=== PATIENT | female | born 1945 | race Caucasian/White ===

== ENCOUNTER → 2018-06-27 | Outpatient (CLI) | payer MEDICARE ==
[~2018-06-27] MED LIST: ALBU90OI INH; ASPI325 PO; BENZ100A PO; CALCAVITDA PO; CARV3.125 PO; CLON1 PO; EZET10-40 PO; Fluoxetine HCl20 M1 PO; GABA300 PO; GLIM2 PO; HYDACE5 PO; HYDACE5325 PO; HYDR1TAB94 PO; LEVE500 PO; LISI5 PO; METF850 PO; Medi-Meclizine25 MG PO; Mucinex600 MG PO; OMEP20ER PO; ONDA4 PO; PRAV20 PO; Prozac20 MG; SENN187 PO; TAMS.4ER PO; ZOLP10 PO; ZOLP5 PO
[2018-06-27 11:59] LABS: Creatinine, Urine Random 81.3 mg/dL (27.00-270.00); Protein, Urine Random 11.6 mg/dL (0.0-11.9)
== END | disposition home or self-care (01) ==
LOC: LAB SHORT 10:44 → LAB 10:44 → LAB FUT 08-31 18:10
PROVIDERS: Internal Medicine
DX: N18.2 Chronic kidney disease, stage 2 (mild) (principal)
CPT/HCPCS: 82570; 84156

== ENCOUNTER → 2018-12-28 | Outpatient (CLI) | payer MEDICARE | END | disposition home or self-care (01) | LOC: LAB SRC 13:10 → LAB SHORT 13:10 | DX: E11.9 Type 2 diabetes mellitus without complications (principal); E20.9 Hypoparathyroidism, unspecified; E78.5 Hyperlipidemia, unspecified; I10 Essential (primary) hypertension; D64.9 Anemia, unspecified | CPT/HCPCS: 82043 ==

== ENCOUNTER → 2020-05-14 | Outpatient (CLI) | payer MEDICARE ==
[2020-05-14 18:04] LABS: Appearance, Urine Clear (Clear); Bilirubin, Urine Neg (Neg); Blood, Urine Neg (Neg); Color, Urine Yellow (P-Yellow); Glucose Qualitative, Urine 4+ (Neg); Ketones, Urine Neg (Neg); Leukocyte Esterase, Urine 3+ (Neg); Nitrite, Urine Neg (Neg); Protein, Urine Neg (Neg); Urobilinogen, Urine NORM (Normal)
[2020-05-14 18:48] LABS: Bacteria Mod /hpf; Red Blood Cells, Urine 0-2 /hpf (0-2); Squamous Epithelial Cells Few /hpf (Few); Transitional Epithelial Cells Few /hpf (0-Rare)
== END | disposition home or self-care (01) ==
LOC: LAB SHORT 12:40 → LAB SRC 12:40 → LAB FUT 05-13 15:05
PROVIDERS: Physician Assistant
DX: R55 Syncope and collapse (principal)
CPT/HCPCS: 81001; 87086

== ENCOUNTER → 2021-05-06 | Outpatient (CLI) | payer MEDICARE ==
[2021-05-06 17:58] LABS: Appearance, Urine Clear (Clear); Bilirubin, Urine Neg (Neg); Blood, Urine Neg (Neg); Color, Urine Yellow (P-Yellow); Glucose Qualitative, Urine 4+ (Neg); Ketones, Urine Neg (Neg); Leukocyte Esterase, Urine 2+ (Neg); Nitrite, Urine Neg (Neg); Protein, Urine Neg (Neg); Urobilinogen, Urine NORM (Normal); pH, Urine 6.5 (5.0-8.0)
[2021-05-06 18:48] LABS: Bacteria Mod /hpf; Red Blood Cells, Urine Not Seen /hpf (0-2); Squamous Epithelial Cells Mod /hpf (Few); White Blood Cells, Urine 0-2 /hpf (0-5)
== END | disposition home or self-care (01) ==
LOC: LAB 13:44 → LAB SHORT 13:44
PROVIDERS: Physician Assistant
DX: E11.65 Type 2 diabetes mellitus with hyperglycemia (principal); R55 Syncope and collapse
CPT/HCPCS: 81001; 82043; 87086

== ENCOUNTER → 2023-02-04 | Outpatient (CLI) | payer MEDICARE ==
[2023-02-04 19:19] LABS: Creatinine, Urine Random 76.1 mg/dL (27.00-270.00); Microalb/Creat Ratio UR, Rand 51.38 mg/g (0.000-30.000); Microalbumin, Random Urine 39.1 mg/L (0.000-20.000)
== END | disposition home or self-care (01) ==
LOC: LAB 08:30 → LAB SHORT 08:30
PROVIDERS: Physician Assistant
DX: E11.22 Type 2 diabetes mellitus with diabetic chronic kidney disease (principal); N18.6 End stage renal disease; E78.2 Mixed hyperlipidemia
CPT/HCPCS: 82043; 82570

== ENCOUNTER 2023-06-21 11:13 | Inpatient (IN) | payer MEDICARE ==
[~2023-06-21] VITALS: Ht 165.1 cm; Wt 38.6 kg
[~2023-06-21 11:13] MED LIST changes: +ATOR40TA PO; +Amlodipine Bes2.5 MG PO; +CEPH500 PO; +DONE5 PO; +Glucophage 850850 MG PO; +LISI20 PO; +MIRT30 PO
[2023-06-21 12:14] LABS: Source, Urine Foley catheter
[2023-06-21 12:17] LABS: Appearance, Urine Clear (Clear); Bilirubin, Urine Neg (Neg); Blood, Urine Neg (Neg); Color, Urine Yellow (P-Yellow); Glucose Qualitative, Urine 4+ (Neg); Ketones, Urine 2+ (Neg); Leukocyte Esterase, Urine Neg (Neg); Nitrite, Urine Neg (Neg); Protein, Urine 2+ (Neg); Urobilinogen, Urine NORM (Normal)
[2023-06-21 12:26] LABS: Amorphous Mod (0-Heavy); Bacteria Rare /hpf; Red Blood Cells, Urine 0-2 /hpf (0-2); Squamous Epithelial Cells Rare /hpf (Few); White Blood Cells, Urine 0-2 /hpf (0-5)
[2023-06-21] MEDS ORDERED: NS 1,000 ML IV SCH ×2 (13:25→17:00)
[2023-06-21 14:52] LABS: Albumin, Blood 3.1 g/dL (3.4-5.0); Albumin/Globulin Ratio 0.9 (0.8-1.8); Bilirubin, Total 0.6 mg/dL (0.1-1.0); Bun/Creatinine Ratio 20.8 (12.0-20.0); Calcium, Blood 9.3 mg/dL (8.5-10.1); Creatinine, Blood 1.44 mg/dL (0.40-1.00); Globulin, Blood 3.5 g/dL (2.2-4.0); Total Protein, Blood 6.6 g/dL (6.4-8.2)
[2023-06-21 14:55] LABS: BASOPHILS ABSOLUTE AUTO 0.01 K/mm3 (0.00-0.23); BASOPHILS PERCENT AUTO 0 % (0-2); EOSINOPHILS ABSOLUTE AUTO 0.01 K/mm3 (0.00-0.68); EOSINOPHILS PERCENT AUTO 0 % (0-6); Hematocrit 35.9 % (33.0-51.0); Hemoglobin 11.7 g/dL (11.5-16.0); IMMATURE GRAN ABSOLUTE AUTO 0.09 K/mm3 (0.00-0.10); IMMATURE GRAN PERCENT AUTO 1 % (0-1); LYMPHOCYTES ABSOLUTE AUTO 0.78 K/mm3 (0.84-5.20); LYMPHOCYTES PERCENT AUTO 8 % (21-46); MONOCYTES ABSOLUTE AUTO 0.73 K/mm3 (0.16-1.47); MONOCYTES PERCENT AUTO 7 % (4-13); Mean Corpuscular HGB 27.9 pg (26.0-34.0); Mean Corpuscular HGB Conc 32.6 g/dL (31.5-36.5); Mean Corpuscular Volume 86 fL (80-100); NEUTROPHILS ABSOLUTE AUTO 8.62 K/mm3 (1.96-9.15); NEUTROPHILS PERCENT AUTO 84 % (41-73); Platelet Count 315 K/mm3 (150-400); RDW Coefficient Variation 19.3 % (11.7-14.2); RDW Standard Deviation 60.1 fL (35.1-46.3); Red Blood Cell Count 4.19 M/mm3 (3.80-5.20); White Blood Cell Count 10.24 K/mm3 (4.00-11.30)
[2023-06-21] MEDS ORDERED: Insulin Human Lispro 100 Units/ML 3ML Syringe SC SCH (18:00)
--- NOTE | 2023-06-21 21:41 | NUR ---
SPOKE WITH KATIE RE THE K+ OF 6.0 THAT WAS NOT TREATED IN THE ER, ER REPORTED THAT THE ELEV K+ WAS DUE TO THE BLOOD BEING HEMOLIZED. KATIE IS OK WITH THE NS AT THE TREATMENT FOR NOW BUT WANTS THE AM CBC AND CMP CHANGED TO BE DRAWN TONIGHT AT 2330. THE TIME AND DATE WAS CHANGED ON THE LABS AND LAB WAS CALLED TO VERIFY THAT THEY COULD SEE THE CHANGE. WILL LET THE PRIMARY RN KNOW.
[2023-06-21 21:42] VITALS: BP 164/85
[2023-06-22 00:04] LABS: BASOPHILS ABSOLUTE AUTO 0.02 K/mm3 (0.00-0.23); BASOPHILS PERCENT AUTO 0 % (0-2); EOSINOPHILS ABSOLUTE AUTO 0.03 K/mm3 (0.00-0.68); EOSINOPHILS PERCENT AUTO 0 % (0-6); Hematocrit 35.2 % (33.0-51.0); Hemoglobin 11.3 g/dL (11.5-16.0); IMMATURE GRAN ABSOLUTE AUTO 0.07 K/mm3 (0.00-0.10); IMMATURE GRAN PERCENT AUTO 1 % (0-1); LYMPHOCYTES ABSOLUTE AUTO 0.98 K/mm3 (0.84-5.20); LYMPHOCYTES PERCENT AUTO 9 % (21-46); MONOCYTES ABSOLUTE AUTO 0.82 K/mm3 (0.16-1.47); MONOCYTES PERCENT AUTO 8 % (4-13); Mean Corpuscular HGB 27.8 pg (26.0-34.0); Mean Corpuscular HGB Conc 32.1 g/dL (31.5-36.5); Mean Corpuscular Volume 87 fL (80-100); Mean Platelet Volume 11.7 fL (9.1-12.4); NEUTROPHILS ABSOLUTE AUTO 8.53 K/mm3 (1.96-9.15); NEUTROPHILS PERCENT AUTO 82 % (41-73); Platelet Count 327 K/mm3 (150-400); RDW Standard Deviation 61.1 fL (35.1-46.3); Red Blood Cell Count 4.06 M/mm3 (3.80-5.20); White Blood Cell Count 10.45 K/mm3 (4.00-11.30)
[2023-06-22 00:33] LABS: Albumin, Blood 2.9 g/dL (3.4-5.0); Albumin/Globulin Ratio 0.9 (0.8-1.8); Bilirubin, Total 0.4 mg/dL (0.1-1.0); Bun/Creatinine Ratio 18.8 (12.0-20.0); Calcium, Blood 8.6 mg/dL (8.5-10.1); Creatinine, Blood 1.33 mg/dL (0.40-1.00); Globulin, Blood 3.4 g/dL (2.2-4.0); Potassium, Blood 4.5 mmol/L (3.5-5.5); Total Protein, Blood 6.3 g/dL (6.4-8.2)
[2023-06-22 03:09] VITALS: BP 151/74
--- NOTE | 2023-06-22 04:45 | NUR ---
shift summary pt able to ambulate to br with 1 assist and fww + gait belt. pt weak. alert, oriented 2-3. pt able to swallow cold water with out difficulty, with out coughing or drooling. no c/o pain.
[2023-06-22 07:51] VITALS: BP 154/86
[2023-06-22] MEDS ORDERED: Heparin Sodium,Porcine 5,000 UNIT/0.5 ML SDV SC SCH (09:00)
[2023-06-22] MEDS ORDERED: Thiamine HCl 200 MG in NS 100 ML IV SCH (10:00)
[2023-06-22] MEDS ORDERED: Multivitamins-Minerals Liquid 15 ML Oral Syringe PO SCH (10:15)
[2023-06-22 11:50] LABS: Magnesium, Blood 0.8 mg/dL (1.6-2.4); Phosphorus, Blood 2.4 mg/dL (2.5-4.9)
[2023-06-22] MEDS ORDERED: Magnesium Sulf 2 GM/Water 50ML 50 ML IV ONE ×2 (12:10→16:00)
[2023-06-22] MEDS ORDERED: Sodium Phosphate 20 MM in Dextrose 5% 500 ML IV STA (13:32)
[2023-06-22 15:34] VITALS: BP 147/81
--- NOTE | 2023-06-22 17:49 | NUR ---
SHIFT SUMMARY PATIENT ALERT AND INTERACTIVE BUT SLIGHTLY CONFUSED. PATIENT ABLE TO AMBULATE TO BATHROOM WITH MINIMAL ASSIST. PATIENT WEAK. DIETARY AND SPEECH EAVALUATED PATIENT. PATIENT DOES NOT HAVE HER DENTURES WITH HER BUT ABLE TO SWALLOW WELL. PATIENT NOTED TO HAVE VARIOUS AREAS OF ABRASIONS AND RECENT WOUND HEALING. PATIENT ADMITS THAT SHE HAS FALLEN A LOT LATELTY AT HOME. BED ALARM AND CHAIR ALARM USED FOR SAFETY. ELECTROLYTE REPLACEMENT COMPLETED. NO FAMILY IN TO SEE PATIENT TODAY
[2023-06-22 19:24] VITALS: BP 126/97
[2023-06-23 03:13] VITALS: BP 141/80
[2023-06-23 07:30] VITALS: BP 106/86
[2023-06-23 07:46] LABS: BASOPHILS ABSOLUTE AUTO 0.01 K/mm3 (0.00-0.23); BASOPHILS PERCENT AUTO 0 % (0-2); EOSINOPHILS ABSOLUTE AUTO 0.08 K/mm3 (0.00-0.68); EOSINOPHILS PERCENT AUTO 1 % (0-6); Hematocrit 26.4 % (33.0-51.0); Hemoglobin 8.6 g/dL (11.5-16.0); IMMATURE GRAN ABSOLUTE AUTO 0.04 K/mm3 (0.00-0.10); IMMATURE GRAN PERCENT AUTO 1 % (0-1); LYMPHOCYTES PERCENT AUTO 16 % (21-46); MONOCYTES ABSOLUTE AUTO 0.54 K/mm3 (0.16-1.47); MONOCYTES PERCENT AUTO 9 % (4-13); Mean Corpuscular HGB 27.3 pg (26.0-34.0); Mean Corpuscular HGB Conc 32.6 g/dL (31.5-36.5); Mean Corpuscular Volume 84 fL (80-100); Mean Platelet Volume 11.2 fL (9.1-12.4); NEUTROPHILS ABSOLUTE AUTO 4.59 K/mm3 (1.96-9.15); NEUTROPHILS PERCENT AUTO 73 % (41-73); Platelet Count 217 K/mm3 (150-400); RDW Coefficient Variation 19.3 % (11.7-14.2); RDW Standard Deviation 60.2 fL (35.1-46.3); Red Blood Cell Count 3.15 M/mm3 (3.80-5.20); White Blood Cell Count 6.26 K/mm3 (4.00-11.30)
[2023-06-23 08:06] LABS: Magnesium, Blood 1.5 mg/dL (1.6-2.4)
[2023-06-23 08:21] LABS: Albumin, Blood 2.3 g/dL (3.4-5.0); Albumin/Globulin Ratio 0.9 (0.8-1.8); Bilirubin, Total 0.4 mg/dL (0.1-1.0); Bun/Creatinine Ratio 9.5 (12.0-20.0); Creatinine, Blood 0.73 mg/dL (0.40-1.00); Globulin, Blood 2.5 g/dL (2.2-4.0); Phosphorus, Blood 2.2 mg/dL (2.5-4.9); Potassium, Blood 2.9 mmol/L (3.5-5.5); Total Protein, Blood 4.8 g/dL (6.4-8.2)
[2023-06-23 08:44] LABS: Calcium, Blood 6.5 mg/dL (8.5-10.1)
[2023-06-23] MEDS ORDERED: Magnesium Sulf 2 GM/Water 50ML 50 ML IV ONE (09:05)
[2023-06-23 15:31] VITALS: BP 120/62
[2023-06-23] MEDS ORDERED: Potassium Phosphate Dibasic 30 MM in Dextrose 5% 500 ML IV STA (16:24)
--- NOTE | 2023-06-23 17:04 | NUR ---
SHIFT SUMMARY: PATIENT IS A PLEASANTLY CONFUSED AND COOPERATIVE 78 YEAR OLD FEMALE HERE FOR AN CÉSAR. SHE IS ALERT AND ORIENTED TO SELF. SHE DOES NOT CALL, SHE GETS UP WITHOUT CALLING; UTLIZING BED AND CHAIR ALARMS. SHE IS CONTINENT/SBA. SHE PULLED HER POWGER GLIDE ACCESS THIS AFTERNOON. CHARGE FOR POSSIBLE REPLACEMENT NOTIFIED DUE TO NEEDING IT FOR FLUIDS/MEDS AND LAB DUE TO DIFFICULT PERIPHERAL ACCESS. SHE IS IN BED, ALERT, BED ALARM ON, NO SIGNS OR SYMPTOMS OF DISTRESS, PLAN OF CARE ONGOING.
[2023-06-23] MEDS ORDERED: Potassium Chloride 20 MEQ TabCR PO ONE (17:05)
[2023-06-23 19:34] VITALS: BP 119/66
[2023-06-24 05:01] VITALS: BP 113/65
[2023-06-24 05:49] LABS: BASOPHILS ABSOLUTE AUTO 0.01 K/mm3 (0.00-0.23); BASOPHILS PERCENT AUTO 0 % (0-2); EOSINOPHILS ABSOLUTE AUTO 0.09 K/mm3 (0.00-0.68); EOSINOPHILS PERCENT AUTO 2 % (0-6); Hemoglobin 8.9 g/dL (11.5-16.0); IMMATURE GRAN ABSOLUTE AUTO 0.03 K/mm3 (0.00-0.10); IMMATURE GRAN PERCENT AUTO 1 % (0-1); LYMPHOCYTES ABSOLUTE AUTO 1.18 K/mm3 (0.84-5.20); LYMPHOCYTES PERCENT AUTO 21 % (21-46); MONOCYTES ABSOLUTE AUTO 0.61 K/mm3 (0.16-1.47); MONOCYTES PERCENT AUTO 11 % (4-13); Mean Corpuscular HGB 28.3 pg (26.0-34.0); Mean Corpuscular Volume 86 fL (80-100); Mean Platelet Volume 11.6 fL (9.1-12.4); NEUTROPHILS ABSOLUTE AUTO 3.81 K/mm3 (1.96-9.15); NEUTROPHILS PERCENT AUTO 67 % (41-73); Platelet Count 196 K/mm3 (150-400); RDW Coefficient Variation 19.4 % (11.7-14.2); RDW Standard Deviation 60.6 fL (35.1-46.3); Red Blood Cell Count 3.15 M/mm3 (3.80-5.20); White Blood Cell Count 5.73 K/mm3 (4.00-11.30)
[2023-06-24 06:21] LABS: Albumin, Blood 2.3 g/dL (3.4-5.0); Albumin/Globulin Ratio 0.9 (0.8-1.8); Bilirubin, Total 0.5 mg/dL (0.1-1.0); Bun/Creatinine Ratio 8.6 (12.0-20.0); Calcium, Blood 7.3 mg/dL (8.5-10.1); Creatinine, Blood 0.81 mg/dL (0.40-1.00); Globulin, Blood 2.6 g/dL (2.2-4.0); Magnesium, Blood 1.9 mg/dL (1.6-2.4); Total Protein, Blood 4.9 g/dL (6.4-8.2)
[2023-06-24] MEDS ORDERED: Potassium Chl 20MEQ/Water100ML 100 ML IV STA (06:51)
[2023-06-24] MEDS ORDERED: Potassium Chloride 20 MEQ TabCR PO ONE (07:00)
[2023-06-24 07:22] VITALS: BP 117/55
[2023-06-24] MEDS ORDERED: Potassium Phosphate Dibasic 30 MM in Dextrose 5% 500 ML IV STA (07:40)
[2023-06-24] MEDS ORDERED: Enoxaparin 30 MG/0.3 ML SYR SC SCH (09:00)
--- NOTE | 2023-06-24 11:05 | NUR ---
MD CALL MS MORSE IS LETHARGIC TODAY. SHE OPENS HER EYES TO REPEATED VERBAL STIMULI AND QUICKLY CLOSES THEM AGAIN. SHE IS ABLE TO SQUEEZE MY HANDS WITH EQUAL WEAK GUITAR TECHNICIAN AND PUSH WITH EQUAL WEAK FOOT STRENGTH. SHE HAS NOT TAKEN ANY ORAL INTAKE, TOO SLEEPY TO SAFELY SWALLOW. DR GOTTI CAME TO BEDSIDE THIS MORNING WHEN SHE WAS THIS SLEEPY BUT THIS HAS NOT IMPROVED SO DR LESLIE CALLED AND NOTIFIED. BLOOD GLUCOSE 106. INCONTINENT OF URINE THIS MONING AND PT DID NOT SEEM TO BE AWARE THAT SHE WAS INCONTINENT. DR LESLIE SAID SHE WILL COME AND ASSESS HER. GIVEN BED BATH THIS AM BUT PT WAS VERY SLEEPY THROUGHOUT THE BATH.
--- NOTE | 2023-06-24 15:59 | NUR ---
SHIFT SUMMARY MS MORSE IS MORE AROUSABLE THIS AFTERNOON AFTER BEING LETHARGIC THIS MORNING. SHE IS SITTING UP IN BED, EYES OPENING EASIER. HER SISTER AND DAUGHTER VISITED HER AND THAT SEEMED TO HELP RAISE HER ALERTNESS LEVEL AND SHE TALKED WITH THEM A LITTLE BIT, ATE SOME PUDDING AND APPLESAUCE. HER FAMILY SAID SHE GOES THROUGH PERIODS OF BEING VERY SLEEPY AT HOME AND LONG PERIODS OF NOT EATING OR DRINKING MUCH AT ALL. IV REPLACED THIS AM AND IVF RESTARTED. GOOD UOP. HER DAUGHTER SAID THAT SHE HAS DNR PAPERS AT HOME, THAT SHE WILL BRING A COPY IN. DR LESLIE INFORMED AND STATUS CHANGED TO DNR. VIRTUAL CAMERA PUT IN ROOM DUE TO REPORTS OF MULTIPLE TIMES PULLING PIV OUT. VIRTUAL CHIMNEY BUILDER HELPER REASON EXPLAINED TO FAMILY WITH GOOD RESPONSE. BED LOW, CALL LIGHT IN REACH, BED ALARM ON.
[2023-06-24 16:00] VITALS: BP 113/65
[2023-06-24 19:38] VITALS: BP 134/92
[2023-06-24] MEDS ORDERED: Mirtazapine 15 MG SoluTab PO SCH (21:00)
[2023-06-25 03:39] VITALS: BP 150/82
--- NOTE | 2023-06-25 04:53 | NUR ---
NO ACUTE CHANGES, SLEPT THROUGH THE EVENING, WAKES VERY SLEEPY AND BACK TO BED, REPOSITIONS SELF, NEW PERIWIK PLACED, MEPILEX ON COCCYX IN PLACE. MAKES NEEDS KNOWN, FORGETFUL, CALL LIGHT WITH IN REACH, CASE MANAGEMENT WORKING ON SCOOP MACHINE OPERATOR CARE/ MEMORY CARE FACILILTY, WILL RELAY TO AM RN
[2023-06-25 06:18] LABS: BASOPHILS ABSOLUTE AUTO 0.01 K/mm3 (0.00-0.23); BASOPHILS PERCENT AUTO 0 % (0-2); EOSINOPHILS PERCENT AUTO 2 % (0-6); Hematocrit 27.5 % (33.0-51.0); Hemoglobin 9.1 g/dL (11.5-16.0); IMMATURE GRAN ABSOLUTE AUTO 0.02 K/mm3 (0.00-0.10); IMMATURE GRAN PERCENT AUTO 0 % (0-1); LYMPHOCYTES ABSOLUTE AUTO 1.16 K/mm3 (0.84-5.20); LYMPHOCYTES PERCENT AUTO 21 % (21-46); MONOCYTES ABSOLUTE AUTO 0.46 K/mm3 (0.16-1.47); MONOCYTES PERCENT AUTO 8 % (4-13); Mean Corpuscular HGB 28.1 pg (26.0-34.0); Mean Corpuscular HGB Conc 33.1 g/dL (31.5-36.5); Mean Corpuscular Volume 85 fL (80-100); Mean Platelet Volume 11.6 fL (9.1-12.4); NEUTROPHILS ABSOLUTE AUTO 3.72 K/mm3 (1.96-9.15); NEUTROPHILS PERCENT AUTO 68 % (41-73); Platelet Count 225 K/mm3 (150-400); RDW Coefficient Variation 19.2 % (11.7-14.2); RDW Standard Deviation 60.5 fL (35.1-46.3); Red Blood Cell Count 3.24 M/mm3 (3.80-5.20); White Blood Cell Count 5.47 K/mm3 (4.00-11.30)
[2023-06-25 06:36] LABS: Bun/Creatinine Ratio 4.2 (12.0-20.0); Calcium, Blood 7.5 mg/dL (8.5-10.1); Creatinine, Blood 0.72 mg/dL (0.40-1.00); Magnesium, Blood 1.2 mg/dL (1.6-2.4); Phosphorus, Blood 2.8 mg/dL (2.5-4.9); Potassium, Blood 3.1 mmol/L (3.5-5.5)
[2023-06-25] MEDS ORDERED: Mag Sulfate 1 GM/D5% 100ML 100 ML IV STA (07:09)
[2023-06-25 07:24] VITALS: BP 140/86
[2023-06-25] MEDS ORDERED: Potassium Chloride 20 MEQ TabCR PO ONE (08:00)
[2023-06-25] MEDS ORDERED: Ferrous Sulfate 325 MG Tab PO SCH (09:00)
--- NOTE | 2023-06-25 15:18 | NUR ---
SHIFT SUMMARY MS MORSE HAS BEEN MORE AWAKE AND ALERT TODAY, ABLE TO STAND AND WALK IN TO THE BATHROOM. VIRTUAL BODY CARE MANAGER IN ROOM, BED AND CHAIR ALARMS ON. MS MORSE DOES NOT USE THE CALL SYSTEM AND SEEMS TO FORGET THAT SHE HAS IVF ATTACHED TO HER, SETTING OFF ALARMS AND VIRTUAL BODY CARE MANAGER ALARM. SHE HAS TAKEN ORAL MEDICATIONS CRUSHED IN YOGHURT AND ATE YOGHURT AND A FEW BITES, THOUGH SHE DECLINES MOST OF THE GLUCERNA. IVF CONTINUE.
[2023-06-25 15:52] VITALS: BP 139/77
[2023-06-25 19:35] VITALS: BP 154/85
--- NOTE | 2023-06-26 05:13 | NUR ---
NO ACUTE CHANGES, PATIENT STATUS CHANGED TO FULL DNR, POLST TO BE UPDATED TODAY WITH FAMILY, PATIENT AND DAUGHTER VOICED WISHES OF DNR WITH ONLY IVF AND SLEEPING AID AT THIS POINT, NO LABS, REPOSITIONING, R TREATMENT MEDICATIONS TO BE GIVEN, VS ONLY ONCE A SHIFT, PERIWIK IN PLACE, CALL LIGHT WITH IN REACH, WILL RELAY TO AM RN
[2023-06-26 07:33] VITALS: BP 142/77
--- NOTE | 2023-06-26 08:41 | NUR ---
MD CALL TELEPHONE ORDER FROM DR HILL TO CANCEL BLOOD DRAW AND CANCEL ONE TIME KDUR. READ BACK DONE AND ORDERS ENTERED INTO [employer].
[2023-06-26] MEDS ORDERED: Omeprazole 20 MG CapCR PO SCH (09:00)
[2023-06-26] MEDS ORDERED: Potassium Chloride 20 MEQ TabCR PO ONE (09:00)
[2023-06-26] MEDS ORDERED: Lisinopril 10 MG Tab PO SCH (09:00)
[2023-06-26] MEDS ORDERED: Lactated Ringer's 1,000 ML IV SCH (12:00)
--- NOTE | 2023-06-26 15:51 | NUR ---
SHIFT SUMMARY MS MORSE WAS VERY SLEEPY THIS MORNING, SHE WOULD OPEN HER EYES IN RESPONSE TO VOICE BUT WAS TOO SLEEPY TO TALK OR TAKE HER MEDICATIONS ORALLY. MIDDAY SHE BECAME MORE ALERT, SITTING UP AND ANSWERING QUESTIONS. SHE HAS EATEN SOME APPLESAUCE AND CHOCOLATE PUDDING AND DRANK ONLY A FEW SIPS OF WATER. SHE HAS REFUSED THE GLUCERNA. PUREWICK IN PLACE AND GOOD UOP. SHE HAD LARGE LOOSE INCONTINENT STOOL. SHE IS ON FOAM MATTRESS AND HAS BEEN HELPED WITH REPOSITIONING Q2HRS BUT SHE HAS NOT WANTED TO GET UP TO THE CHAIR YET TODAY. IVF INFUSING. BED LOW, CALL LIGHT IN REACH, VIRTUAL DECKER OPERATOR IN ROOM DUE TO HISTORY OF PULLIG OUT IV ACCESS AND YESTERDAY SHE WAS GETTING UP OUT OF BED AND CHAIR BY HERSELF, TODAY THERE HAVE BEEN NO ALERTS SO FAR.
[2023-06-26 19:27] VITALS: BP 159/91
[2023-06-26] MEDS ORDERED: Donepezil HCl 5 MG Tab PO SCH (21:00)
[2023-06-26] MEDS ORDERED: Atorvastatin 40 MG Tab PO SCH (21:00)
--- NOTE | 2023-06-27 05:42 | NUR ---
SHIFT SUMMARY PT A&OX3 AND ANSWERS QUESTIONS APPROPRIATELY. PT RECEIVED MEDICATIONS PER EMAR. PT VSS, NO COMPLAINTS OF CP OR SOB. PT SPENT MOST OF SHIFT RESTING IN BED EYES CLOSED AND RESPIRATIONS EVEN AND UNLABORED. NO ACUTE EVENTS AT THIS TIME. APPROPRIATE FALL PRECAUTIONS IN PLACE PER POLICY. CALL LIGHT IN REACH.
[2023-06-27 09:43] VITALS: BP 160/100
[2023-06-27 09:44] VITALS: BP 164/87
[2023-06-27 16:06] VITALS: BP 121/72
--- NOTE | 2023-06-27 18:21 | NUR ---
PT PLEASANT COOP A/O TO SELF AND PLACE, WANTS TO GO HOME. TALKS SOFTLY. MORE AWAKE THIS AFT. HAD FAMILY IN TODAY. NO C/O PAIN, H/R REG, NO MURMUR NO EDEMA NOTED. NO TELE. LUNG CLEAR, RESP EASY, UNLABORED. BT X4 LAST BM YEST. BED IN LOW POSITION, CALL LITE IN REACH, BED ALARM ON FOR SAFETY
[2023-06-27 19:39] VITALS: BP 112/64
--- NOTE | 2023-06-28 06:22 | NUR ---
SHIFT SUMMARY: Pt is admitted for CÉSAR and is a DNR. is alert and able to make needs known. ADLs have been mostly 1p but did not get out of bed. Denies pain or discomfort when asked. Power glide to left upper is patent with dressing that is CDI.
[2023-06-28 08:05] VITALS: BP 93/52
[2023-06-28] MEDS ORDERED: Magnesium Sulf 2 GM/Water 50ML 50 ML IV ONE (10:15)
[2023-06-28 11:38] VITALS: BP 105/73
--- NOTE | 2023-06-28 19:48 | NUR ---
SHIFT SUMMARY PATIENT WITH NO ACUTE EVENTS DURING SHIFT. SHE IS UP TO SHOWER WITH ASSISTANCE OF LUKAS LASSITER TODAY. SHE IS PLEASANT AND COOPERATIVE WITH CARE. BED IN LOW POSITION, CALL LIGHT IN REACH. SHE DOES NOT CALL AND REQUIRES FREQUENT ROUNDING.
[2023-06-28 20:03] VITALS: BP 96/85
--- NOTE | 2023-06-29 04:12 | NUR ---
SHIFT SUMMARY PT. IS A&O X 1-2, RESTING IN BED, LAYING ON HER RIGHT SIDE. PT. DENIED PAIN, SOB, OR DISCOMFORT. NO ACUTE EVENTS/DISTRESS NOTED/REPORTED DURING THIS SHIFT. Q2HR TURNS, PLACED MEPILEX ON HER COCCYX AREA TO KEEP THE SKIN C/D/I. SKIN IS INTACT, A SMALL RED AREA NOTED. WILL NOTIFY INCOMING SHIFT NURSE. BED AT THE LOWEST POSITION, CALL LIGHT IN REACH. WILL PASS ON TO THE INCOMING SHIFT NURSE.
--- NOTE | 2023-06-29 05:42 | NUR ---
SHIFT SUMMARY PT. IS A&O 1-2, APPEARS VERY WEARY. PT. RESTING ON HER RIGHT SIDE, BED AT THE LOWEST POSITION, CALL LIGHT IN REACH. REPLACED A MEPILEX TO THE COCCYX AREA, REDDENED AREA, SKIN IS INTACT. NEW PICTURE OF PT.'S BUTTOCK AREA IN THE CHART. NO ACUTE EVENTS/DISTRESS NOTEDDURING THIS SHIFT. WILL PASS THE REPORT TO THE INCOMING SHIFT NURSE. PT.DID NOT WANT THE 0600 OMEPRAZOLE SCHEDULED PO MED.
[2023-06-29 07:47] VITALS: BP 113/68
[2023-06-29 16:05] LABS: Bun/Creatinine Ratio 9.6 (12.0-20.0); Calcium, Blood 8.4 mg/dL (8.5-10.1); Creatinine, Blood 1.04 mg/dL (0.40-1.00); Magnesium, Blood 1.4 mg/dL (1.6-2.4); Phosphorus, Blood 3.5 mg/dL (2.5-4.9)
[2023-06-29] MEDS ORDERED: Magnesium Sulf 2 GM/Water 50ML 50 ML IV STA (17:06)
--- NOTE | 2023-06-29 18:21 | NUR ---
SHIFT SUMMARY PATIENT WITH NO ACUTE EVENTS DURING SHIFT. SHE DENIES ANY PAIN ISSUES, AGREABLE TO CARE. SHE IS UP TO BATHROOM WITH STAND BY ASSIST. BED IN LOW POSITION, CALL LIGHT IN REACH. PATIENT ABLE TO MAKE NEEDS KNOWN. SHE TURNS SELF IN BED THROUGHOUT SHIFT IN MULTIPLE POSITIONS INCLUDING PRONE AT BEGINNING OF SHIFT.
[2023-06-29 19:50] VITALS: BP 114/64
--- NOTE | 2023-06-30 02:55 | NUR ---
PT. IS A&O X 3, ALERT, COOPERATIVE WITH CARE, PLEASANT. PT. DENIES PAIN AND DISCOMFORT. PT. IS AWARE OF THE D/C PLAN FOR TODAY, AND STATED" I'LL HAVE MORE TO DO THAN HERE." NO ACUTE DISTRESS NOTED/REPORTED DURING THIS SHIFT. CALL LIGHT IN REACH, BED AT THE LOWEST POSITION. WILL HANDOFF TO THE INCOMING SHIFT NURSE.
[2023-06-30 06:16] LABS: Hematocrit 26.7 % (33.0-51.0); Hemoglobin 8.5 g/dL (11.5-16.0)
[2023-06-30 06:44] LABS: Albumin, Blood 2.2 g/dL (3.4-5.0); Albumin/Globulin Ratio 0.8 (0.8-1.8); Bilirubin, Total 0.4 mg/dL (0.1-1.0); Bun/Creatinine Ratio 11.2 (12.0-20.0); Calcium, Blood 8.7 mg/dL (8.5-10.1); Creatinine, Blood 0.98 mg/dL (0.40-1.00); Globulin, Blood 2.7 g/dL (2.2-4.0); Magnesium, Blood 1.9 mg/dL (1.6-2.4); Total Protein, Blood 4.9 g/dL (6.4-8.2)
[2023-06-30 07:36] VITALS: BP 91/50
--- NOTE | 2023-06-30 19:21 | NUR ---
NO ACUTE CHANGES. PT IS CALM AND COOPERATIVE, IMPULSIVE. CHAIR ALARM ACTIVATED. ALERT AND ORIENTED X2-3. SBA WITH FWW AND GAIT BELT.
[2023-06-30 20:01] VITALS: BP 99/60
--- NOTE | 2023-07-01 06:18 | NUR ---
Shift Summary Pt AOx3 at start of shift. Once she fell asleep she remained very lethargic t/o the night, only waking up for pt care and complaining that the wants to go back to sleep. Pt occasionally turned to promote healing of redness on her bottom. Incontinent, attends and bed changed as needed.
[2023-07-01 08:00] VITALS: BP 116/66
--- NOTE | 2023-07-01 10:24 | NUR ---
REPORT GIVEN TO FACILITY RN. AWAITING TRANSPORT.
--- NOTE | 2023-07-01 11:52 | NUR ---
PT DISCHARGED TO FACILITY
== END 2023-07-01 10:44 | DRG 682 ==
LOC: ER 11:13 → MEDS 11:14
PROVIDERS: Emergency Medicine; Family Medicine; ADMIT Internal Medicine
DX: N17.9 Acute kidney failure, unspecified (principal); E43 Unspecified severe protein-calorie malnutrition; Z68.1 Body mass index [BMI] 19.9 or less, adult; I25.10 Atherosclerotic heart disease of native coronary artery without angina pectoris; F03.90 Unspecified dementia, unspecified severity, without behavioral disturbance, psychotic disturbance, mood disturbance, and anxiety; Z66 Do not resuscitate; R74.01 Elevation of levels of liver transaminase levels; R62.7 Adult failure to thrive; K21.9 Gastro-esophageal reflux disease without esophagitis; Z87.442 Personal history of urinary calculi; E87.5 Hyperkalemia; E87.6 Hypokalemia; E88.09 Other disorders of plasma-protein metabolism, not elsewhere classified; F10.90 Alcohol use, unspecified, uncomplicated; E86.0 Dehydration; E83.42 Hypomagnesemia; E83.39 Other disorders of phosphorus metabolism; L89.151 Pressure ulcer of sacral region, stage 1; E11.622 Type 2 diabetes mellitus with other skin ulcer; Z95.1 Presence of aortocoronary bypass graft; D64.9 Anemia, unspecified; E11.9 Type 2 diabetes mellitus without complications; Z90.710 Acquired absence of both cervix and uterus; Z90.89 Acquired absence of other organs; Z88.5 Allergy status to narcotic agent; Z88.0 Allergy status to penicillin; Z88.8 Allergy status to other drugs, medicaments and biological substances; Z87.891 Personal history of nicotine dependence
CPT/HCPCS: 36415; 70450; 80048; 80053; 81001; 82550; 82947; 83735; 84100; 85014; 85018; 85025; 92610; 96360; 96361; 96372; 97110; 97116; 97162; 97165; 97530; 97535; 99285-25; A9270; G0378; J1644; J1650; J3411; J3475; J7030; J7060; J7120; P9612

== ENCOUNTER → 2023-12-21 | Outpatient (CLI) | payer MEDICARE ==
[2023-12-21 10:42] LABS: BASOPHILS ABSOLUTE AUTO 0.04 K/mm3 (0.00-0.23); BASOPHILS PERCENT AUTO 1 % (0-2); EOSINOPHILS ABSOLUTE AUTO 0.31 K/mm3 (0.00-0.68); EOSINOPHILS PERCENT AUTO 5 % (0-6); Hematocrit 32.2 % (33.0-51.0); Hemoglobin 10.5 g/dL (11.5-16.0); IMMATURE GRAN ABSOLUTE AUTO 0.01 K/mm3 (0.00-0.10); IMMATURE GRAN PERCENT AUTO 0 % (0-1); LYMPHOCYTES ABSOLUTE AUTO 1.59 K/mm3 (0.84-5.20); LYMPHOCYTES PERCENT AUTO 26 % (21-46); MONOCYTES ABSOLUTE AUTO 0.53 K/mm3 (0.16-1.47); MONOCYTES PERCENT AUTO 9 % (4-13); Mean Corpuscular HGB 29.8 pg (26.0-34.0); Mean Corpuscular HGB Conc 32.6 g/dL (31.5-36.5); Mean Corpuscular Volume 92 fL (80-100); Mean Platelet Volume 10.9 fL (9.1-12.4); NEUTROPHILS ABSOLUTE AUTO 3.68 K/mm3 (1.96-9.15); NEUTROPHILS PERCENT AUTO 60 % (41-73); Platelet Count 230 K/mm3 (150-400); RDW Coefficient Variation 12.5 % (11.7-14.2); RDW Standard Deviation 41.5 fL (35.1-46.3); Red Blood Cell Count 3.52 M/mm3 (3.80-5.20); White Blood Cell Count 6.16 K/mm3 (4.00-11.30)
[2023-12-21 11:46] LABS: Alanine Aminotransfer (ALT/SGP 19 U/L (12-78); Alk Phos 168 U/L (50-136); Anion Gap 11 mmol/L (3-11); Aspartate Aminotrans (AST/SGOT 12 U/L (12-37); Bilirubin, Total 0.6 mg/dL (0.1-1.0); Blood Urea Nitrogen 33 mg/dL (8-24); Bun/Creatinine Ratio 23.7 (12.0-20.0); CO2, Blood 25 mmol/L (21-32); Chloride, Blood 107 mmol/L (98-108); Cholesterol 152 mg/dL (50-200); Creatinine, Blood 1.39 mg/dL (0.40-1.00); Glomerular Filtration Rate 39 (60-); Glucose, Blood 210 mg/dL (70-99); HDL Cholesterol 50 mg/dL (>39); LDL/HDL RATIO 1.5; Low Density Lipoprotein Chol 77 mg/dL (0-110); Potassium, Blood 4.4 mmol/L (3.5-5.5); Sodium, Blood 139 mmol/L (136-145); Triglycerides 125 mg/dL (30-160); Very Low Density Lipoprot Chol 25 mg/dL (6-32)
== END ==
LOC: LAB 08:56 → LAB SHORT 08:56
PROVIDERS: Physician Assistant
DX: E11.22 Type 2 diabetes mellitus with diabetic chronic kidney disease (principal); E78.2 Mixed hyperlipidemia; N18.6 End stage renal disease
CPT/HCPCS: 80053; 80061; 83036; 85025

== ENCOUNTER 2024-02-05 09:16 | Observation (INO) | payer MEDICARE, OTHER ==
[~2024-02-05] VITALS: Ht 154.9 cm; Wt 49.3 kg
[2024-02-05 10:02] LABS: BASOPHILS ABSOLUTE AUTO 0.03 K/mm3 (0.00-0.23); BASOPHILS PERCENT AUTO 0 % (0-2); EOSINOPHILS ABSOLUTE AUTO 0.03 K/mm3 (0.00-0.68); EOSINOPHILS PERCENT AUTO 0 % (0-6); Hematocrit 41.9 % (33.0-51.0); Hemoglobin 13.8 g/dL (11.5-16.0); IMMATURE GRAN ABSOLUTE AUTO 0.13 K/mm3 (0.00-0.10); IMMATURE GRAN PERCENT AUTO 1 % (0-1); LYMPHOCYTES ABSOLUTE AUTO 0.84 K/mm3 (0.84-5.20); LYMPHOCYTES PERCENT AUTO 5 % (21-46); MONOCYTES ABSOLUTE AUTO 0.45 K/mm3 (0.16-1.47); MONOCYTES PERCENT AUTO 3 % (4-13); Mean Corpuscular HGB 30.8 pg (26.0-34.0); Mean Corpuscular HGB Conc 32.9 g/dL (31.5-36.5); Mean Corpuscular Volume 94 fL (80-100); NEUTROPHILS ABSOLUTE AUTO 14.03 K/mm3 (1.96-9.15); NEUTROPHILS PERCENT AUTO 91 % (41-73); RDW Standard Deviation 41.6 fL (35.1-46.3); Red Blood Cell Count 4.48 M/mm3 (3.80-5.20); White Blood Cell Count 15.51 K/mm3 (4.00-11.30)
[2024-02-05 10:25] LABS: International Normalized Ratio 0.98; Prothrombin Time Results 10.5 Sec (9.7-11.5)
[2024-02-05] MEDS ORDERED: Lisinopril 10 MG Tab PO ONE (10:35)
[2024-02-05 10:44] LABS: Albumin, Blood 3.8 g/dL (3.4-5.0); Bilirubin, Total 0.7 mg/dL (0.1-1.0); Bun/Creatinine Ratio 32.9 (12.0-20.0); Calcium, Blood 9.9 mg/dL (8.5-10.1); Creatinine, Blood 1.46 mg/dL (0.40-1.00); Potassium, Blood 5.2 mmol/L (3.5-5.5); Total Protein, Blood 7.8 g/dL (6.4-8.2)
[2024-02-05 10:47] LABS: Source, Urine Clean Catch
[2024-02-05 10:52] LABS: Appearance, Urine Clear (Clear); Bilirubin, Urine Neg (Neg); Blood, Urine Neg (Neg); Glucose Qualitative, Urine 4+ (Neg); Ketones, Urine 2+ (Neg); Leukocyte Esterase, Urine Neg (Neg); Nitrite, Urine Neg (Neg); Protein, Urine 2+ (Neg); Urobilinogen, Urine NORM (Normal)
[2024-02-05 10:54] LABS: Color, Urine Pale Yellow (P-Yellow)
[2024-02-05] MEDS ORDERED: NS 1,000 ML IV SCH ×5 (10:55→19:55)
[2024-02-05] MEDS ORDERED: Insulin NPH 100 Unit / ML 10ML Vial SC ONE (11:20)
[2024-02-05 11:32] LABS: Bacteria Many /hpf; Red Blood Cells, Urine 0-2 /hpf (0-2); Squamous Epithelial Cells Rare /hpf (Few)
[2024-02-05] MEDS ORDERED: Pantoprazole Sodium 40 MG Injection IV ONE (11:40)
[2024-02-05] MEDS ORDERED: Labetalol HCL 5 MG/ML 4ML Injection (Single Dose) IV ONE (12:00)
[2024-02-05] MEDS ORDERED: NS 1,000 ML IV ONE (12:00)
[2024-02-05] MEDS ORDERED: Insulin Human Regular 100 UNIT/ML 10ML Vial IV ONE (12:00)
[2024-02-05] MEDS ORDERED: D5W-1/2NS KCl 20mEq 1,000 ML IV SCH (12:05)
[2024-02-05] MEDS ORDERED: Ondansetron HCl 2 MG / ML 2ML Vial IV PRN (12:05)
[2024-02-05] MEDS ORDERED: Dextrose 50% 50 ML Vial IV PRN (12:05)
[2024-02-05] MEDS ORDERED: FLU VACC TS2024-25(6MOS UP)/PF 45 MCG/0.5 ML SYRINGE IM PRN (12:05)
[2024-02-05] MEDS ORDERED: Insulin Human Regular 100 UNIT in NS 100 ML IV SCH (12:10)
[2024-02-05 12:13] LABS: Mean Platelet Volume 10.5 fL (9.1-12.4); Platelet Count 308 K/mm3 (150-400)
[2024-02-05 13:49] LABS: Base Excess Venous -0.3 mmol/L; PCO2 Venous 43.8 mmHg (38-42); pH Blood Venous 7.37 (7.34-7.37)
[2024-02-05 15:14] LABS: Glucose, Blood 411 mg/dL (70-99); Potassium, Blood 4.4 mmol/L (3.5-5.5)
[2024-02-05 15:31] LABS: Anion Gap 13 mmol/L (3-11); Blood Urea Nitrogen 40 mg/dL (8-24); Bun/Creatinine Ratio 29.4 (12.0-20.0); CO2, Blood 24 mmol/L (21-32); Calcium, Blood 8.3 mg/dL (8.5-10.1); Chloride, Blood 111 mmol/L (98-108); Creatinine, Blood 1.36 mg/dL (0.40-1.00); Glomerular Filtration Rate 40 (60-); Glucose, Blood 410 mg/dL (70-99); Phosphorus, Blood 3.8 mg/dL (2.5-4.9); Potassium, Blood 4.4 mmol/L (3.5-5.5); Sodium, Blood 144 mmol/L (136-145)
[2024-02-05] MEDS ORDERED: Insulin Human Lispro 100 Units/ML 3ML Syringe SC SCH ×2 (17:00→21:00)
[2024-02-05] MEDS ORDERED: Prinivil10 MG PO (19:25)
[2024-02-05] MEDS ORDERED: OLAN2.5 PO (19:26)
[2024-02-05] MEDS ORDERED: FARXIGA10 MG PO (19:27)
[2024-02-05] MEDS ORDERED: MIRT15 PO (19:29)
[2024-02-05 20:38] VITALS: BP 170/84
[2024-02-05] MEDS ORDERED: Insulin Glargine-Yfgn 100 Unit/mL 3 ML SYR SC SCH (21:00)
[2024-02-05 21:08] LABS: Anion Gap 8 mmol/L (3-11); Blood Urea Nitrogen 24 mg/dL (8-24); Bun/Creatinine Ratio 29.4 (12.0-20.0); CO2, Blood 20 mmol/L (21-32); Chloride, Blood 126 mmol/L (98-108); Creatinine, Blood 0.82 mg/dL (0.40-1.00); Glomerular Filtration Rate 73 (60-); Glucose, Blood 167 mg/dL (70-99); Phosphorus, Blood 1.9 mg/dL (2.5-4.9); Potassium, Blood 2.6 mmol/L (3.5-5.5); Sodium, Blood 151 mmol/L (136-145)
[2024-02-05 21:16] LABS: Calcium, Blood 5.3 mg/dL (8.5-10.1)
[2024-02-05] MEDS ORDERED: CALCIUM GLUC IN NACL, ISO-OSM 50 ML IV ONE (23:20)
[2024-02-06 03:19] VITALS: BP 164/74
[2024-02-06] MEDS ORDERED: Pantoprazole Sodium 40 MG Injection IV SCH (06:00)
[2024-02-06 06:32] LABS: Magnesium, Blood 1.5 mg/dL (1.6-2.4)
[2024-02-06 06:49] LABS: Albumin, Blood 3.3 g/dL (3.4-5.0); Bilirubin, Total 0.8 mg/dL (0.1-1.0); Bun/Creatinine Ratio 26.1 (12.0-20.0); Creatinine, Blood 1.11 mg/dL (0.40-1.00); Globulin, Blood 3.3 g/dL (2.2-4.0); Total Protein, Blood 6.6 g/dL (6.4-8.2)
[2024-02-06 07:24] VITALS: BP 185/108
[2024-02-06] MEDS ORDERED: HydrALAZINE HCl 20 MG / ML 1ML Vial IV STA (08:04)
[2024-02-06] MEDS ORDERED: Magnesium Sulf 2 GM/Water 50ML 50 ML IV ONE (08:15)
[2024-02-06] MEDS ORDERED: Insulin Glargine-Yfgn 100 Unit/mL 3 ML SYR SC SCH (09:00)
[2024-02-06] MEDS ORDERED: HydrALAZINE HCl 20 MG / ML 1ML Vial IV PRN (09:00)
[2024-02-06] MEDS ORDERED: FentaNYL Citrate 50 MCG/ML 2 ML Injection IV STA (09:31)
--- NOTE | 2024-02-06 10:16 | NUR ---
DISCUSSED PAIN MEDICATION ORDER. PT STATES THAT SHE DOESNT REMEMBER TALKING TO DOCTOR BUT DOES NOT FEEL PAIN AT THIS TIME. PT EDUCATED ON PAIN ASSESSMENT AND TO CALL IF PAIN RETURNS. PT AGREEABLE. PT CURRENTLY SITTING UP IN [employer] EATING BREAKFAST
[2024-02-06 11:53] VITALS: BP 155/85
[2024-02-06 13:27] LABS: Albumin, Blood 3.2 g/dL (3.4-5.0); Anion Gap 15 mmol/L (3-11); Blood Urea Nitrogen 30 mg/dL (8-24); Bun/Creatinine Ratio 28.3 (12.0-20.0); CO2, Blood 22 mmol/L (21-32); Calcium, Blood 9.2 mg/dL (8.5-10.1); Chloride, Blood 104 mmol/L (98-108); Creatinine, Blood 1.06 mg/dL (0.40-1.00); Glomerular Filtration Rate 53 (60-); Glucose, Blood 319 mg/dL (70-99); Phosphorus, Blood 3.5 mg/dL (2.5-4.9); Potassium, Blood 3.8 mmol/L (3.5-5.5); Sodium, Blood 137 mmol/L (136-145)
[2024-02-06 15:23] VITALS: BP 197/83
[2024-02-06] MEDS ORDERED: FentaNYL Citrate 50 MCG/ML 2 ML Injection IV PRN (16:25)
--- NOTE | 2024-02-06 16:27 | NUR ---
PT C/O RUQ PAIN. PER DR. STEPHENS, ORDER FENTANYL 25MCG Q 4HP
--- NOTE | 2024-02-06 16:39 | NUR ---
SUMMARY PT IS ALERT AND ORIENTED X3-4, CONFUSED AT TIMES. POOR SHORT TERM MEMORY RECALL, 1 ASSIST TO THE BEDSIDE COMMODE. CBG TREATED PER EMAR. IV FLUIDS CONTINUED. PENDING ULTRASOUND RESULTS. PT C/O PAIN TO RUQ, TREATED PER EMAR. UPDATED DIRECTOR AT PT FACILITY. PT DOES CALL APPROPRIATELY.
[2024-02-06 17:07] VITALS: BP 139/70
[2024-02-06] MEDS ORDERED: Lisinopril 10 MG Tab PO SCH (19:00)
[2024-02-06 19:51] VITALS: BP 163/83
--- NOTE | 2024-02-07 02:37 | NUR ---
PATIENT WAS AWAKE AND IN HER ROOM, I DID NOT HAVE THE BED ALARM ON SHE REMOVED 1 OF HER IV'S. AND WAS INCONT. OF LARGE URINE, NO STOOL. SHE APOLOGIZIED WHEN SHE REALIZED WHAT SHE DID. WE DID A COMPLETE BED CHANGE AND GOWN. WE PUT THE SCD'S BACK ON, ALONG WITH THE BED ALARM.
[2024-02-07 03:05] VITALS: BP 162/79
--- NOTE | 2024-02-07 04:54 | NUR ---
SHIFT SUMMARY PATIENT SLEPT THE REST OF THE SHIFT WITHOUT TRYING TO GET UP.BOTH BP WERE JUST UNDER THE SYSTOLIC PARAMETER OF 170. NO STOOLS THIS SHIFT.
[2024-02-07 06:15] LABS: Hematocrit 30.9 % (33.0-51.0); Mean Corpuscular HGB 30.6 pg (26.0-34.0); Mean Corpuscular HGB Conc 32.4 g/dL (31.5-36.5); Mean Corpuscular Volume 95 fL (80-100); Mean Platelet Volume 10.2 fL (9.1-12.4); Platelet Count 273 K/mm3 (150-400); RDW Coefficient Variation 12.4 % (11.7-14.2); RDW Standard Deviation 43.1 fL (35.1-46.3); Red Blood Cell Count 3.27 M/mm3 (3.80-5.20); White Blood Cell Count 10.48 K/mm3 (4.00-11.30)
[2024-02-07 06:52] LABS: Albumin, Blood 2.7 g/dL (3.4-5.0); Albumin/Globulin Ratio 0.9 (0.8-1.8); Bilirubin, Total 0.7 mg/dL (0.1-1.0); Bun/Creatinine Ratio 27.4 (12.0-20.0); Calcium, Blood 8.6 mg/dL (8.5-10.1); Creatinine, Blood 1.13 mg/dL (0.40-1.00); Globulin, Blood 3.1 g/dL (2.2-4.0); Magnesium, Blood 1.8 mg/dL (1.6-2.4); Phosphorus, Blood 2.5 mg/dL (2.5-4.9); Potassium, Blood 3.6 mmol/L (3.5-5.5); Total Protein, Blood 5.8 g/dL (6.4-8.2)
[2024-02-07 07:52] VITALS: BP 150/85
[2024-02-07] MEDS ORDERED: INSULANI SC (10:33)
[2024-02-07] MEDS ORDERED: HUMALOG KW100 UNIT/1 (10:34)
--- NOTE | 2024-02-07 14:18 | NUR ---
DISCHARGE PT IS A/O VSS LITTLE TEMP THIS AM WAS COVERED WITH TYLENOL, PT SHOWED NO S/S OF DISTRESS. DR STEPHENS ORDERED DISCHARGE, ORDERS IMPLEMENTED. PT REPORT WAS CALLED INTO [facility]. STAFF FROM FACILITY CAME IN AND TRANSPORTED PT.
== END 2024-02-07 13:55 | disposition home or self-care (01) ==
LOC: ER 09:16 → ICUE 11:59 → MEDS 11:59 → ICUE 11:59 → MEDS 20:25
PROVIDERS: Student in an Organized Health Care Education/Training Program; ADMIT Internal Medicine
DX: E11.10 Type 2 diabetes mellitus with ketoacidosis without coma (principal); E11.65 Type 2 diabetes mellitus with hyperglycemia; E86.0 Dehydration; N17.9 Acute kidney failure, unspecified; K29.70 Gastritis, unspecified, without bleeding; I10 Essential (primary) hypertension; E78.5 Hyperlipidemia, unspecified; I25.10 Atherosclerotic heart disease of native coronary artery without angina pectoris; F03.90 Unspecified dementia, unspecified severity, without behavioral disturbance, psychotic disturbance, mood disturbance, and anxiety; K21.9 Gastro-esophageal reflux disease without esophagitis; Z66 Do not resuscitate; Z79.4 Long term (current) use of insulin; Z79.899 Other long term (current) drug therapy; Z95.1 Presence of aortocoronary bypass graft
CPT/HCPCS: 36415; 74150; 76705; 80053; 80069; 81001; 82803; 82947; 83690; 83735; 84100; 84132; 85025; 85027; 85049; 85610; 86900; 86901; 93005; 93010; 96361; 96374; 96375; 96376; 99285-25; A9270; G0378; J0360; J0612; J1815; J2470; J3010; J3475; J7030

== ENCOUNTER 2024-03-31 07:44 | Emergency (ER) | payer MEDICARE ==
[~2024-03-31] VITALS: Ht 157.5 cm; Wt 54.4 kg
[~2024-03-31 07:44] MED LIST changes: +FARXIGA10 MG PO; +HUMALOG KW100 UNIT/1; +INSULANI SC; +MIRT15 PO; +OLAN2.5 PO; +Prinivil10 MG PO
[2024-03-31] MEDS ORDERED: Ondansetron HCl 2 MG / ML 2ML Vial IV ONE (07:55)
[2024-03-31] MEDS ORDERED: Pantoprazole Sodium 40 MG Injection IV ONE (07:55)
[2024-03-31 08:39] LABS: BASOPHILS ABSOLUTE AUTO 0.03 K/mm3 (0.00-0.23); BASOPHILS PERCENT AUTO 0 % (0-2); EOSINOPHILS PERCENT AUTO 0 % (0-6); Hematocrit 38.6 % (33.0-51.0); Hemoglobin 12.7 g/dL (11.5-16.0); IMMATURE GRAN ABSOLUTE AUTO 0.07 K/mm3 (0.00-0.10); IMMATURE GRAN PERCENT AUTO 1 % (0-1); LYMPHOCYTES ABSOLUTE AUTO 1.39 K/mm3 (0.84-5.20); LYMPHOCYTES PERCENT AUTO 10 % (21-46); MONOCYTES ABSOLUTE AUTO 0.77 K/mm3 (0.16-1.47); MONOCYTES PERCENT AUTO 6 % (4-13); Mean Corpuscular HGB 29.6 pg (26.0-34.0); Mean Corpuscular HGB Conc 32.9 g/dL (31.5-36.5); Mean Corpuscular Volume 90 fL (80-100); Mean Platelet Volume 10.4 fL (9.1-12.4); NEUTROPHILS ABSOLUTE AUTO 11.39 K/mm3 (1.96-9.15); NEUTROPHILS PERCENT AUTO 84 % (41-73); Platelet Count 351 K/mm3 (150-400); RDW Coefficient Variation 12.5 % (11.7-14.2); RDW Standard Deviation 41.1 fL (35.1-46.3); Red Blood Cell Count 4.29 M/mm3 (3.80-5.20); White Blood Cell Count 13.65 K/mm3 (4.00-11.30)
[2024-03-31 08:53] LABS: Bilirubin, Total 0.6 mg/dL (0.1-1.0); Bun/Creatinine Ratio 28.4 (12.0-20.0); Calcium, Blood 10.1 mg/dL (8.5-10.1); Creatinine, Blood 1.55 mg/dL (0.40-1.00); Globulin, Blood 3.9 g/dL (2.2-4.0); Potassium, Blood 4.5 mmol/L (3.5-5.5); Total Protein, Blood 7.9 g/dL (6.4-8.2)
[2024-03-31] MEDS ORDERED: NS 1,000 ML IV SCH ×2 (09:10→11:00)
[2024-03-31 09:33] LABS: Influenza A, PCR NEGATIVE (NEGATIVE); Influenza B, PCR NEGATIVE (NEGATIVE); Resp Syncytial Virus, PCR NEGATIVE (NEGATIVE); SARS-Cov-2 (COVID-19) PCR, MMC NEGATIVE (NEGATIVE)
[2024-03-31 09:38] LABS: Base Excess Venous 3.7 mmol/L; Bicarbonate Venous 28.2 mmol/L (24.0-30.0); PCO2 Venous 29.5 mmHg (38-42); pH Blood Venous 7.55 (7.34-7.37)
[2024-03-31] MEDS ORDERED: Insulin Regular 100 Unit/ML 1ML Dose IV ONE ×2 (09:50→11:05)
[2024-03-31 10:51] LABS: Bun/Creatinine Ratio 28.5 (12.0-20.0); Calcium, Blood 8.8 mg/dL (8.5-10.1); Creatinine, Blood 1.37 mg/dL (0.40-1.00); Potassium, Blood 3.5 mmol/L (3.5-5.5)
[2024-03-31 12:14] LABS: Calcium, Ionized (POC) 0.87 mmol/L (1.10-1.46); Chloride (POC) 109 mmol/L (98-108); Creatinine (POC) 1.1 mg/dL (0.6-1.0); Glucose (ISTAT POC) 280 mg/dL (70-99); Hemoglobin (POC) 9.2 g/dL (12.0-16.0); Potassium (POC) 2.5 mmol/L (3.5-5.5); Sodium (POC) 144 mmol/L (135-148); Total CO2 (POC) 19 mmol/L (21-32)
[2024-03-31 12:18] VITALS: BP 195/76
[2024-03-31 12:51] LABS: Calcium, Blood 8.9 mg/dL (8.5-10.1); Creatinine, Blood 1.41 mg/dL (0.40-1.00); Potassium, Blood 3.7 mmol/L (3.5-5.5)
== END 2024-03-31 13:41 | disposition home or self-care (01) ==
LOC: ER 07:44
PROVIDERS: Emergency Medicine
DX: R11.2 Nausea with vomiting, unspecified (principal); R10.13 Epigastric pain; E86.0 Dehydration; K21.9 Gastro-esophageal reflux disease without esophagitis; I10 Essential (primary) hypertension; E78.5 Hyperlipidemia, unspecified; E11.65 Type 2 diabetes mellitus with hyperglycemia; Z87.891 Personal history of nicotine dependence; Z79.4 Long term (current) use of insulin; Z79.899 Other long term (current) drug therapy; Z88.0 Allergy status to penicillin; Z88.5 Allergy status to narcotic agent; Z88.6 Allergy status to analgesic agent; Z88.8 Allergy status to other drugs, medicaments and biological substances
CPT/HCPCS: 0241U; 80047; 80048; 80053; 82803; 83690; 85014; 85025; 93005; 93010; 96361; 96374; 96375; 99284-25; J1815; J2405; J2470; J7030

== ENCOUNTER → 2024-04-04 | Outpatient (CLI) | payer MEDICARE, OTHER ==
[2024-04-04 09:35] LABS: BASOPHILS ABSOLUTE AUTO 0.03 K/mm3 (0.00-0.23); BASOPHILS PERCENT AUTO 0 % (0-2); EOSINOPHILS ABSOLUTE AUTO 0.19 K/mm3 (0.00-0.68); EOSINOPHILS PERCENT AUTO 2 % (0-6); Hematocrit 27.9 % (33.0-51.0); Hemoglobin 9.6 g/dL (11.5-16.0); IMMATURE GRAN ABSOLUTE AUTO 0.02 K/mm3 (0.00-0.10); IMMATURE GRAN PERCENT AUTO 0 % (0-1); LYMPHOCYTES ABSOLUTE AUTO 1.77 K/mm3 (0.84-5.20); LYMPHOCYTES PERCENT AUTO 22 % (21-46); MONOCYTES ABSOLUTE AUTO 0.67 K/mm3 (0.16-1.47); MONOCYTES PERCENT AUTO 8 % (4-13); Mean Corpuscular HGB 30.3 pg (26.0-34.0); Mean Corpuscular HGB Conc 34.4 g/dL (31.5-36.5); Mean Corpuscular Volume 88 fL (80-100); Mean Platelet Volume 10.5 fL (9.1-12.4); NEUTROPHILS ABSOLUTE AUTO 5.48 K/mm3 (1.96-9.15); NEUTROPHILS PERCENT AUTO 67 % (41-73); Platelet Count 261 K/mm3 (150-400); RDW Coefficient Variation 12.3 % (11.7-14.2); Red Blood Cell Count 3.17 M/mm3 (3.80-5.20); White Blood Cell Count 8.16 K/mm3 (4.00-11.30)
[2024-04-04 09:52] LABS: Alanine Aminotransfer (ALT/SGP 16 U/L (12-78); Albumin, Blood 2.8 g/dL (3.4-5.0); Alk Phos 117 U/L (50-136); Anion Gap 13 mmol/L (3-11); Aspartate Aminotrans (AST/SGOT 12 U/L (12-37); Bilirubin, Total 0.4 mg/dL (0.1-1.0); Blood Urea Nitrogen 75 mg/dL (8-24); Bun/Creatinine Ratio 25.4 (12.0-20.0); CHOL/HDL RATIO 3.9; CO2, Blood 26 mmol/L (21-32); Calcium, Blood 8.1 mg/dL (8.5-10.1); Chloride, Blood 100 mmol/L (98-108); Cholesterol 138 mg/dL (50-200); Creatinine, Blood 2.95 mg/dL (0.40-1.00); Globulin, Blood 2.8 g/dL (2.2-4.0); Glomerular Filtration Rate 16 (60-); Glucose, Blood 161 mg/dL (70-99); HDL Cholesterol 35 mg/dL (>39); LDL/HDL RATIO 1.9; Low Density Lipoprotein Chol 67 mg/dL (0-110); Magnesium, Blood 1.6 mg/dL (1.6-2.4); Potassium, Blood 3.4 mmol/L (3.5-5.5); Sodium, Blood 136 mmol/L (136-145); Total Protein, Blood 5.6 g/dL (6.4-8.2); Triglycerides 178 mg/dL (30-160); Very Low Density Lipoprot Chol 35 mg/dL (6-32)
[2024-04-06 11:12] LABS: HEPATITIS C AB CIA INTERP Negative (Negative); HEPATITIS C ANTIBODY CIA INDEX 0.09 IV
== END | disposition home or self-care (01) ==
LOC: LAB 08:34 → LAB SHORT 08:34
PROVIDERS: Physician Assistant
DX: Z11.59 Encounter for screening for other viral diseases (principal); E11.22 Type 2 diabetes mellitus with diabetic chronic kidney disease; N18.6 End stage renal disease; E78.2 Mixed hyperlipidemia
CPT/HCPCS: 80053; 80061; 83036; 83735; 85025; 86803

== ENCOUNTER → 2024-04-17 | Outpatient (CLI) | payer MEDICARE, OTHER ==
[2024-04-17 23:27] LABS: Albumin, Blood 3.4 g/dL (3.4-5.0); Bilirubin, Total 0.2 mg/dL (0.1-1.0); Bun/Creatinine Ratio 17.3 (12.0-20.0); Calcium, Blood 9.5 mg/dL (8.5-10.1); Creatinine, Blood 1.5 mg/dL (0.40-1.00); Globulin, Blood 3.5 g/dL (2.2-4.0); Potassium, Blood 4.4 mmol/L (3.5-5.5); Total Protein, Blood 6.9 g/dL (6.4-8.2)
== END | disposition home or self-care (01) ==
LOC: LAB 14:50 → LAB SHORT 14:50
PROVIDERS: Physician Assistant
DX: I12.9 Hypertensive chronic kidney disease with stage 1 through stage 4 chronic kidney disease, or unspecified chronic kidney disease (principal); N18.9 Chronic kidney disease, unspecified
CPT/HCPCS: 80053